=== PATIENT | male | born 1960 | race Caucasian/White ===

== ENCOUNTER 2018-06-12 18:24 | Emergency (ER) | payer MEDICARE, OTHER ==
[2018-06-12] MEDS ORDERED: ONDANSETRON 4 MG/2 ML VIAL IVP STA (19:02)
[2018-06-12] MEDS ORDERED: HYDROmorphone 1 MG/ML CARPUJECT IVP STA ×2 (19:02→20:15)
[2018-06-12 19:03] LABS: BASOPHILS % (AUTO) 0.3 %; EOSINOPHILS % (AUTO) 0.1 %; HGB - HEMOGLOBIN 15.6 g/dL (14.0-18.0); LYMPHOCYTES # (AUTO) 0.7 10^3/uL (1.5-3.5); LYMPHOCYTES % (AUTO) 5.9 %; MEAN CORPUSCULAR HEMOGLOBIN 30.9 pg (27.0-31.0); MEAN CORPUSCULAR HGB CONC 35.2 g/dL (32.0-36.0); MEAN CORPUSCULAR VOLUME 87.6 fL (80.0-94.0); MEAN PLATELET VOLUME 8.8 fL (7.4-11.4); MONOCYTES # (AUTO) 0.2 10^3/uL (0.0-1.0); MONOCYTES % (AUTO) 1.9 %; NEUTROPHILS # (AUTO) 11.2 10^3/uL (1.5-6.6); NEUTROPHILS % (AUTO) 91.8 %; PLT - PLATELET COUNT 137 10^3/uL (130-450); RED BLOOD COUNT 5.04 10^6/uL (4.70-6.10); RED CELL DISTRIBUTION WIDTH 13.5 % (12.0-15.0); WHITE BLOOD COUNT 12.2 x10^3/uL (4.8-10.8)
--- NOTE | 2018-06-12 19:04 | ED Physician Documentation ---
PD HPI ABD PAIN - Stated complaint Stated Complaint: VOMITING/ABD PX - Chief complaint Chief Complaint: Abd Pain - History obtained from History obtained from: Patient, Family () - History of Present Illness Timing - onset: Today (He had inguinal hernia repair 4 weeks ago at the [facility]. He had an acute onset of left-sided abdominal back and urethral pain just a few hours ago with one episode of vomiting.) Review of Systems Ten Systems: 10 systems reviewed and negative Constitutional: denies: Fever, Chills Throat: denies: Dental pain / toothache, Sore throat Cardiac: denies: Chest pain / pressure, Palpitations Respiratory: denies: Dyspnea, Cough PD PAST MEDICAL HISTORY - Past Medical History Cardiovascular: None Respiratory: None Endocrine/Autoimmune: None GI: None : None HEENT: Other Psych: Post traumatic stress disorder Musculoskeletal: Osteoarthritis, Chronic back pain, Other Derm: None - Past Surgical History Ortho: Other HEENT: Other - Present Medications Home Medications: Ambulatory Orders Medication Instructions Recorded Confirmed Ibuprofen [Motrin] 800 mg PO Q8H PRN #30 tablet 06/12/18 Ondansetron Odt [Zofran] 4 mg TL Q6H PRN #10 tablet 06/12/18 Oxycodone HCl/Acetaminophen 1 - 2 each PO Q6H PRN #14 tablet 06/12/18 [Percocet 5-325 mg Tablet] Tamsulosin [Flomax] 0.4 mg PO DAILY #14 capsule 06/12/18 - Allergies Allergies/Adverse Reactions: Allergies Allergy/AdvReac Type Severity Reaction Status Date / Time No Known Drug Allergies Allergy Verified 06/12/18 18:31 PD ED PE NORMAL - Vitals Vital signs reviewed: Yes - General General: Alert and oriented X 3, Other (He is writhing in pain and sweating and appears very uncomfortable) - HEENT HEENT: PERRL, EOMI - Neck Neck: Supple, no meningeal sign, No bony TTP - Cardiac Cardiac: RRR, No murmur - Respiratory Respiratory: No respiratory distress, Clear bilaterally - Abdomen Abdomen: Other (Quite tender in the left side, surgical incisions look fine, no testicular tenderness or inguinal tenderness on the left.) - Back Back: No CVA TTP, No spinal TTP - Derm Derm: Normal color, Warm and dry - Neuro Neuro: Alert and oriented X 3, Normal speech Results - Vitals Vitals: Vital Signs - 24 hr 06/12/18 06/12/18 06/12/18 18:25 19:24 20:00 Temperature 36.4 C L Heart Rate 61 66 70 Respiratory 20 18 17 Rate Blood Pressure 156/89 H 153/98 H 153/84 H O2 Saturation 100 95 98 06/12/18 21:48 Temperature Heart Rate 98 Respiratory 18 Rate Blood Pressure 125/86 H O2 Saturation 95 Oxygen O2 Source Room air - Labs Labs: Laboratory Tests 06/12/18 06/12/18 06/12/18 18:45 18:45 19:25 WBC 12.2 H RBC 5.04 Hgb 15.6 Hct 44.2 MCV 87.6 MCH 30.9 MCHC 35.2 RDW 13.5 Plt Count 137 MPV 8.8 Neut # (Auto) 11.2 H Lymph # (Auto) 0.7 L [place] # (Auto) 0.2 Eos # (Auto) 0.0 Baso # (Auto) 0.0 Absolute Nucleated RBC 0.00 Nucleated RBC % 0.0 Sodium 140 Potassium 3.7 Chloride 104 Carbon Dioxide 24 Anion Gap 12.0 BUN 16 Creatinine 1.4 H Estimated GFR (MDRD) 52 L Glucose 135 H Lactic Acid 5.2 H* Calcium 9.4 Total Bilirubin 1.0 AST 26 ALT 22 Alkaline Phosphatase 39 L Total Protein 7.4 Albumin 4.9 Globulin 2.5 Albumin/Globulin Ratio 2.0 Lipase 27 Urine Color Urine Clarity Urine pH Ur Specific [place] Urine Protein Urine Glucose (UA) Urine Ketones Urine Occult Blood Urine Nitrite Urine Bilirubin Urine Urobilinogen Ur Leukocyte Esterase Ur Microscopic Review Urine Culture Comments 06/12/18 06/12/18 20:18 20:25 WBC RBC Hgb Hct MCV MCH MCHC RDW Plt Count MPV Neut # (Auto) Lymph # (Auto) [place] # (Auto) Eos # (Auto) Baso # (Auto) Absolute Nucleated RBC Nucleated RBC % Sodium Potassium Chloride Carbon Dioxide Anion Gap BUN Creatinine Estimated GFR (MDRD) Glucose Lactic Acid 2.5 H Calcium Total Bilirubin AST ALT Alkaline Phosphatase Total Protein Albumin Globulin Albumin/Globulin Ratio Lipase Urine Color YELLOW Urine Clarity CLEAR Urine pH 6.5 Ur Specific [place] 1.020 Urine Protein NEGATIVE Urine Glucose (UA) NEGATIVE Urine Ketones >=80 H Urine Occult Blood NEGATIVE Urine Nitrite NEGATIVE Urine Bilirubin NEGATIVE Urine Urobilinogen 0.2 (NORMAL) Ur Leukocyte Esterase NEGATIVE Ur Microscopic Review NOT INDICATED Urine Culture Comments NOT INDICATED - Rads (name of study) CT A/P Radiology: EMP read contemporaneously (2 mm left distal ureteral stone with signs of obstruction and moderate fluid in urine in the left perirenal space and proximal periureteral region consistent with forniceal rupture.) PD MEDICAL DECISION MAKING - ED course ED course: 58-year-old gentleman with severe left abdominal pain most consistent on arrival with renal colic but did have significant abdominal tenderness which went away on subsequent examination after narcotic analgesia. CT imaging as shown and because of the forniceal rupture the case was discussed by phone with urology, Dr. Pierce which in [place] who agrees that this can be managed conservatively without urgent transfer. Departure - Departure Disposition: Home, Self Care Clinical Impression: Renal colic Renal rupture Qualifiers: Encounter type: initial encounter Laterality: left Qualified Code(s): S37.062A - Major laceration of left kidney, initial encounter Condition: Good Record reviewed to determine appropriate education?: Yes Instructions: ED Stone Renal W Colic Prescriptions: Ibuprofen [Motrin] 800 mg PO Q8H PRN #30 tablet PRN Reason: PAIN &/OR FEVER Ondansetron Odt [Zofran] 4 mg TL Q6H PRN #10 tablet PRN Reason: Nausea / Vomiting Oxycodone HCl/Acetaminophen [Percocet 5-325 mg Tablet] 1 - 2 each PO Q6H PRN #14 tablet PRN Reason: pain Tamsulosin [Flomax] 0.4 mg PO DAILY #14 capsule Comments: He should follow-up with urologist, gentleman I spoke with grabiel is Dr. Brian in [place], his phone number is [phone], Friday for an appointment. Take the copy of the CAT scan on CD with you for that appointment. Do not drink or drive while taking narcotic pain medication. Note that many narcotic pain relievers also contain Tylenol/acetaminophen. Please ensure that your total dose of acetaminophen from all sources does not exceed 3 g (3000 mg) per day. You may get constipated while on this medication. Take a stool softener such as Colace twice a day while you are on it. Also add an [id number] laxative such as senna or MiraLAX on any day that you do not have a bowel movement. If you received a narcotic pain medication or sedative while in the emergency department, do not drive for the next 24 hours.
[2018-06-12 19:06] LABS: ALBUMIN 4.9 g/dL (3.2-5.5); CALCIUM 9.4 mg/dL (8.5-10.3); CREATININE 1.4 mg/dL (0.6-1.2); TOTAL PROTEIN 7.4 g/dL (6.7-8.2)
[2018-06-12] MEDS ORDERED: SODIUM CHLORIDE 0.9% 1,000 ML IV ONE (20:02)
[2018-06-12] MEDS ORDERED: IOVERSOL 320 100 ML VIAL IVP ONE ×2 (20:23→21:00)
[2018-06-12 20:30] LABS: BILIRUBIN,URINE NEGATIVE (NEGATIVE); GLUCOSE, URINE (UA) NEGATIVE (NEGATIVE); KETONES,URINE (UA) >=80 mg/dL (NEGATIVE); LEUKOCYTE ESTERASE, URINE NEGATIVE (NEGATIVE); NITRITE,URINE NEGATIVE (NEGATIVE); OCCULT BLOOD,URINE NEGATIVE (NEGATIVE); PH,URINE 6.5 PH (5.0-7.5); PROTEIN,URINE NEGATIVE (NEGATIVE); UROBILINOGEN,URINE 0.2 (NORMAL) E.U./dL (NORMAL)
[2018-06-12 20:33] LABS: CLARITY,URINE CLEAR (CLEAR)
[2018-06-12] MEDS ORDERED: KETOROLAC 60 MG/2 ML VIAL IVP STA (21:07)
--- NOTE | 2018-06-12 21:36 | CT Report ---
Reason: IV only, L abd pain Procedure Date: 06/12/2018 Accession Number: [id number] / [id number] Procedure: CT - Abdomen/Pelvis W/ CPT Code: FULL RESULT: EXAM: CT ABDOMEN AND PELVIS EXAM DATE: 06/12/2018 08:49 PM. CLINICAL HISTORY: IV only, L abd pain. COMPARISONS: None. TECHNIQUE: Routine helical CT imaging was performed through the abdomen and pelvis. IV contrast: OPTIRAY 320 100mL. Enteric contrast: No. Reconstructions: Coronal and sagittal. In accordance with CT protocol optimization, one or more of the following dose reduction techniques were utilized for this exam: automated exposure control, adjustment of mA and/or KV based on patient size, or use of iterative reconstructive technique. FINDINGS: Lung Bases: Unremarkable. Liver: Normal. No masses. Gallbladder/Bile Ducts: Unremarkable. Spleen: Normal. Pancreas: Normal size, contour, and enhancement. No pancreatic ductal dilatation. There is edema posterior and inferior to the pancreatic tail which appears to be centered on the posterior pararenal space and fascia. Adrenal Glands: Normal. Kidneys: Right kidney unremarkable. Left kidney with mildly delayed nephrographic enhancement. Minimal left hydronephrosis and proximal hydroureter. Moderate infiltrating density in the left posterior pararenal space and extending in the retroperitoneum inferiorly along the course of the left ureter. There is a 2 mm distal left ureteral calculus at the level of the upper third of the femoral head. No other uroliths are identified on this contrast-enhanced study. Peritoneal Cavity/Bowel: Unopacified stomach and small bowel are nondistended. Appendix is normal. There is minimal formed stool in the colon. There is no pericolonic fat stranding. There is no lymphadenopathy. There is no free fluid or free air. Pelvic Organs: Mild prostatomegaly. Small volume bladder without stones. Seminal vesicles unremarkable. Vasculature: Minimal aortic calcification without abnormal dilation. Otherwise unremarkable. Bones: Degenerative disk disease which is mild at L3-L4, moderate at L5-S1. Other: Tiny fat-containing left inguinal hernia. IMPRESSION: 2 mm distal left ureteral calculus causing obstruction including delayed nephrographic enhancement, minimal hydronephrosis, and moderate fluid/urine in the left pararenal space and proximal periureteral region consistent with forniceal rupture. RADIA
[2018-06-12 21:49] VITALS: BP 125/86
[2018-06-12] MEDS ORDERED: oxyCODONE/ACET 5/325 Prepack 4 PO STA (21:56)
[2018-06-12] MEDS ORDERED: ONDANSETRON ODT 4 MG Prepack 2 TL STA (21:56)
[2018-06-12] MEDS ORDERED: TAMSULOSIN 0.4 MG CAPSULE PO STA (21:56)
== END 2018-06-12 22:54 | disposition home or self-care (01) ==
LOC: ED 18:24
DX: N13.2 Hydronephrosis with renal and ureteral calculous obstruction (principal)
CPT/HCPCS: 36415; 74177; 80053; 81003; 83605; 83690; 85025; 96361; 96374; 96375; 96376; 99283; 99284; A9270; J1170; Q9967; 81001; 87086

== ENCOUNTER 2018-06-14 07:38 | Emergency (ER) | payer MEDICARE, OTHER ==
[2018-06-14] MEDS ORDERED: ONDANSETRON 4 MG/2 ML VIAL IVP STA (08:22)
[2018-06-14] MEDS ORDERED: HYDROmorphone 1 MG/ML CARPUJECT IVP STA ×2 (08:22→10:10)
--- NOTE | 2018-06-14 08:23 | ED Physician Documentation ---
PD HPI ABD PAIN - Stated complaint Stated Complaint: SIDE PX - Chief complaint Chief Complaint: Abd Pain - History obtained from History obtained from: Patient, Family - History of Present Illness Timing - onset: Enter time (0600), Today Timing - duration: Hours Timing - details: Abrupt onset, Still present Quality: Sharp, Pain Location: LUQ Radiation: Left flank Improved by: Laying still Worsened by: Moving, Position, Palpation Associated symptoms: Nausea Similar symptoms before: Diagnosis (ureterolithiasis with forniceal rupture.) Recently seen: Emergency Dept - Additional information Additional information: 58-year-old male seen in the emerge department 2 days ago with a left distal ureteral stone about 2 mm with an associated forniceal rupture. He had a fair collection of fluid in the left flank and he had excellent relief of his pain with the use of some Toradol. Today he has recurrence of his pain that is severe and he is not been able to get control of it. He comes to the emergency department today with increased pain. Review of Systems Constitutional: denies: Fever Eyes: denies: Decreased vision Ears: denies: Ear pain Nose: denies: Congestion Throat: denies: Sore throat Cardiac: denies: Chest pain / pressure Respiratory: denies: Dyspnea, Cough GI: reports: Abdominal Pain, Nausea. denies: Abdominal Swelling : denies: Dysuria, Frequency Skin: denies: Rash Musculoskeletal: reports: Back pain. denies: Neck pain, Extremity pain Neurologic: denies: Generalized weakness, Focal weakness, Numbness PD PAST MEDICAL HISTORY - Past Medical History Cardiovascular: None Respiratory: None Endocrine/Autoimmune: None GI: None : None HEENT: Other Psych: Post traumatic stress disorder Musculoskeletal: Osteoarthritis, Chronic back pain, Other Derm: None - Past Surgical History Ortho: Other HEENT: Other - Present Medications Home Medications: Ambulatory Orders Medication Instructions Recorded Confirmed Ibuprofen [Motrin] 800 mg PO Q8H PRN #30 tablet 06/12/18 Ondansetron Odt [Zofran] 4 mg TL Q6H PRN #10 tablet 06/12/18 Oxycodone HCl/Acetaminophen 1 - 2 each PO Q6H PRN #14 tablet 06/12/18 [Percocet 5-325 mg Tablet] Tamsulosin [Flomax] 0.4 mg PO DAILY #14 capsule 06/12/18 - Allergies Allergies/Adverse Reactions: Allergies Allergy/AdvReac Type Severity Reaction Status Date / Time No Known Drug Allergies Allergy Verified 06/12/18 18:31 PD ED PE NORMAL - Vitals Vital signs reviewed: Yes - General General: Alert and oriented X 3, Well developed/nourished, Other (laying on the right side splinting to keep the left side off of the bed. ) - HEENT HEENT: Atraumatic, PERRL, EOMI - Neck Neck: Supple, no meningeal sign - Cardiac Cardiac: RRR, No murmur - Respiratory Respiratory: No respiratory distress, Clear bilaterally - Abdomen Abdomen: Soft, Other (LUQ tenderness and tenderness to the left flank with some palpable fullness. ) - Back Back: No spinal TTP, Other (left flank tenderness and fullness) - Derm Derm: Normal color, Warm and dry, No rash - Extremities Extremities: No edema - Neuro Neuro: Alert and oriented X 3, rn wellness 2-12 intact, No motor deficit, No sensory deficit, Normal speech Eye Opening: Spontaneous Motor: Obeys Commands Verbal: Oriented GCS Score: 15 - Psych Psych: Normal mood, Normal affect Results - Vitals Vitals: Vital Signs - 24 hr 06/14/18 06/14/18 06/14/18 08:14 08:54 09:48 Temperature 37.0 C Heart Rate 101 H 72 79 Respiratory 18 15 15 Rate Blood Pressure 134/77 H 138/73 H 156/71 H O2 Saturation 99 92 99 06/14/18 06/14/18 06/14/18 10:15 11:35 12:49 Temperature Heart Rate 65 75 86 Respiratory 18 18 16 Rate Blood Pressure 123/74 115/79 124/78 O2 Saturation 98 98 99 Oxygen O2 Source Room air - Labs Labs: Laboratory Tests 06/14/18 06/14/18 06/14/18 08:10 08:10 08:10 WBC 14.4 H RBC 4.83 Hgb 15.1 Hct 42.5 MCV 88.0 MCH 31.3 H MCHC 35.6 RDW 13.1 Plt Count 128 L MPV 8.5 Neut # (Auto) 12.5 H Lymph # (Auto) 0.8 L [place] # (Auto) 1.0 Eos # (Auto) 0.0 Baso # (Auto) 0.0 Absolute Nucleated RBC 0.04 Nucleated RBC % 0.3 Sodium 133 L Potassium 4.3 Chloride 102 Carbon Dioxide 23 Anion Gap 8.0 BUN 21 H Creatinine 2.0 H Estimated GFR (MDRD) 35 L Glucose 133 H Calcium 8.6 Total Bilirubin 1.6 H AST 22 ALT 17 Alkaline Phosphatase 36 L Troponin I < 0.04 Total Protein 7.0 Albumin 4.3 Globulin 2.7 Albumin/Globulin Ratio 1.6 Lipase 34 Urine Color Urine Clarity Urine pH Ur Specific [place] Urine Protein Urine Glucose (UA) Urine Ketones Urine Occult Blood Urine Nitrite Urine Bilirubin Urine Urobilinogen Ur Leukocyte Esterase Ur Microscopic Review Urine Culture Comments 06/14/18 08:53 WBC RBC Hgb Hct MCV MCH MCHC RDW Plt Count MPV Neut # (Auto) Lymph # (Auto) [place] # (Auto) Eos # (Auto) Baso # (Auto) Absolute Nucleated RBC Nucleated RBC % Sodium Potassium Chloride Carbon Dioxide Anion Gap BUN Creatinine Estimated GFR (MDRD) Glucose Calcium Total Bilirubin AST ALT Alkaline Phosphatase Troponin I Total Protein Albumin Globulin Albumin/Globulin Ratio Lipase Urine Color YELLOW Urine Clarity CLEAR Urine pH 5.5 Ur Specific [place] 1.015 Urine Protein NEGATIVE Urine Glucose (UA) NEGATIVE Urine Ketones NEGATIVE Urine Occult Blood NEGATIVE Urine Nitrite NEGATIVE Urine Bilirubin NEGATIVE Urine Urobilinogen 0.2 (NORMAL) Ur Leukocyte Esterase NEGATIVE Ur Microscopic Review NOT INDICATED Urine Culture Comments NOT INDICATED - Rads (name of study) CT ab/pel without Radiology: Prelim report reviewed (Impression: 1. Left urinary tract stone has migrated to the left ureterovesicular junction. 2 There is persistent moderate left hydronephrosis. Perhaps mild interval increase in perinephric and periureteral fluid. There is small to moderate free fluid within the left pelvis which is new since the previous study. Some element of continued urinary extravasation may be present. 3 Remaining solid abdominal organs demonstrate no acute abnormalities.4 No gastrointestinal tract findings. 5 Incidental note of is made of increased maximal diameter of the IVC consistent with jolie vena cava), EMP read indepedently, Other PD MEDICAL DECISION MAKING - ED course Complexity details: reviewed old records, reviewed results, re-evaluated patient, considered differential, d/w patient ED course: 58-year-old male with a distal left ureter stone and a ruptured forniceal has an increase in his pain and presents to the emergency department today with confusion about the amount of fluid he is drinking and the amount of urine he has put out. We are able to get control of his pain today with intravenous Dilaudid and at the time of discharge his pain is resolved. We were able to obtain a second CT urogram this morning and this demonstrates presence of contrast in the distal ureter on the left side and a slight increase in the perinephric fluid and some free fluid into the pelvis. Dr. Pierce which is consulted and the case by telephone and recommends being certain the patient is on his tamsulosin and discontinue the use of anti- inflammatory. He recommends the patient be placed n.p.o. after midnight and follow-up with him in the clinic tomorrow morning. Indicates the patient will likely have reabsorption of most of the urine that is leaking out of the calyces and will have an elevation in his creatinine related to that. He also indicates the hydrodynamic pressure usually present to push a 2mm stone is not present. Departure - Departure Disposition: 01 Home, Self Care Clinical Impression: Renal colic Renal rupture Qualifiers: Encounter type: subsequent encounter Laterality: left Qualified Code(s): S37.062D - Major laceration of left kidney, subsequent encounter Condition: Stable Instructions: ED Stone Renal W Colic Follow-Up: Mariano Brian MD [Physician No Access] - Comments: Be certain to take the tamsulosin and take the oxycodone to stay on top of the pain. Do not eat after midnight and call Dr. Brian tomorrow morning with an update. ([phone]) Discharge Date/Time: 06/14/18 13:03
[2018-06-14 08:35] LABS: BASOPHILS % (AUTO) 0.2 %; EOSINOPHILS % (AUTO) 0.1 %; HGB - HEMOGLOBIN 15.1 g/dL (14.0-18.0); LYMPHOCYTES # (AUTO) 0.8 10^3/uL (1.5-3.5); LYMPHOCYTES % (AUTO) 5.9 %; MEAN CORPUSCULAR HEMOGLOBIN 31.3 pg (27.0-31.0); MEAN CORPUSCULAR HGB CONC 35.6 g/dL (32.0-36.0); MEAN PLATELET VOLUME 8.5 fL (7.4-11.4); NEUTROPHILS # (AUTO) 12.5 10^3/uL (1.5-6.6); NEUTROPHILS % (AUTO) 86.8 %; PLT - PLATELET COUNT 128 10^3/uL (130-450); RED BLOOD COUNT 4.83 10^6/uL (4.70-6.10); RED CELL DISTRIBUTION WIDTH 13.1 % (12.0-15.0); WHITE BLOOD COUNT 14.4 x10^3/uL (4.8-10.8)
[2018-06-14 08:39] LABS: ALBUMIN 4.3 g/dL (3.2-5.5); ALBUMIN/GLOBULIN RATIO 1.6 (1.0-2.2); BILIRUBIN,TOTAL 1.6 mg/dL (0.2-1.0); CALCIUM 8.6 mg/dL (8.5-10.3)
[2018-06-14 09:22] LABS: BILIRUBIN,URINE NEGATIVE (NEGATIVE); GLUCOSE, URINE (UA) NEGATIVE (NEGATIVE); KETONES,URINE (UA) NEGATIVE (NEGATIVE); LEUKOCYTE ESTERASE, URINE NEGATIVE (NEGATIVE); NITRITE,URINE NEGATIVE (NEGATIVE); OCCULT BLOOD,URINE NEGATIVE (NEGATIVE); PH,URINE 5.5 PH (5.0-7.5); PROTEIN,URINE NEGATIVE (NEGATIVE); UROBILINOGEN,URINE 0.2 (NORMAL) E.U./dL (NORMAL)
[2018-06-14 09:23] LABS: CLARITY,URINE CLEAR (CLEAR)
--- NOTE | 2018-06-14 10:11 | CT Report ---
Reason: left foriceal rupture decreased urine output Procedure Date: 06/14/2018 Accession Number: [id number] / [id number] Procedure: CT - Abdomen/Pelvis W/O CPT Code: FULL RESULT: EXAM: CT ABDOMEN AND PELVIS (CT KUB) EXAM DATE: 06/14/2018 09:14 AM. CLINICAL HISTORY: Left forniceal rupture decreased urine output. COMPARISONS: ABDOMEN/PELVIS W/ 06/12/2018 8:49 PM. TECHNIQUE: Routine axial helical CT imaging was performed through the abdomen and pelvis without IV contrast. Reconstructions: Coronal and sagittal. In accordance with CT protocol optimization, one or more of the following dose reduction techniques were utilized for this exam: automated exposure control, adjustment of mA and/or KV based on patient size, or use of iterative reconstructive technique. FINDINGS: Lung Bases: Unremarkable. Right Kidney/Ureter: No stones, hydronephrosis, or hydroureter. No perinephric fat stranding. Left Kidney/Ureter: The 0.2 cm stone has moved from the low left ureter to the left ureterovesicular junction. There is some mild residual contrast material within the mid and upper left ureter. There is moderate left hydronephrosis. There has been mild interval increase in perinephric and periureteral fluid. There is fluid within the posterior left pelvis. Other Solid Organs: Noncontrast images of the solid organs are grossly unremarkable. Gallbladder/Bile Ducts: There is layering hyperdensity within the gallbladder which is probably sludge or vicarious excretion of contrast material. Peritoneal Cavity: No dilated or thick-walled bowel is seen. As above, there is free fluid within the pelvis. There is no intraperitoneal free air. Pelvic Organs: Left UVJ stone as above. Prostate and seminal vesicles are unremarkable. Vasculature: The IVC measures up to 3.0 cm in diameter. No clearly acute vascular abnormalities are seen. Other: None. IMPRESSION: 1. Left urinary tract stone has migrated to the left ureterovesicular junction. 2. There is persistent moderate left hydronephrosis. Perhaps mild interval increase in perinephric and periureteral fluid. There is small to moderate free fluid within the left pelvis which is new since the previous study. Some element of continued urinary extravasation may be present. 3. Remaining solid abdominal organs demonstrate no acute abnormalities. 4. No acute gastrointestinal tract findings. 5. Incidental note is made of increased maximal diameter of the IVC, consistent with jolie vena cava. RADIA
[2018-06-14 12:50] VITALS: BP 124/78
== END 2018-06-14 13:03 | disposition home or self-care (01) ==
LOC: ED 07:38
DX: N13.2 Hydronephrosis with renal and ureteral calculous obstruction (principal); S37.062D Major laceration of left kidney, subsequent encounter; X58.XXXD Exposure to other specified factors, subsequent encounter
CPT/HCPCS: 36415; 74176; 80053; 81003; 83690; 84484; 85025; 96374; 96376; 99283; 99284; J1170; 81001; 87086

== ENCOUNTER 2018-06-18 18:15 | Emergency (ER) | payer MEDICARE, OTHER ==
[2018-06-18 18:44] LABS: BASOPHILS % (AUTO) 0.7 %; EOSINOPHILS # (AUTO) 0.2 10^3/uL (0.0-0.7); EOSINOPHILS % (AUTO) 2.5 %; HGB - HEMOGLOBIN 14.7 g/dL (14.0-18.0); LYMPHOCYTES # (AUTO) 1.2 10^3/uL (1.5-3.5); MEAN CORPUSCULAR HEMOGLOBIN 30.7 pg (27.0-31.0); MEAN CORPUSCULAR HGB CONC 34.7 g/dL (32.0-36.0); MEAN CORPUSCULAR VOLUME 88.5 fL (80.0-94.0); MEAN PLATELET VOLUME 7.7 fL (7.4-11.4); MONOCYTES # (AUTO) 0.6 10^3/uL (0.0-1.0); MONOCYTES % (AUTO) 9.4 %; NEUTROPHILS # (AUTO) 4.6 10^3/uL (1.5-6.6); NEUTROPHILS % (AUTO) 69.4 %; PLT - PLATELET COUNT 160 10^3/uL (130-450); RED BLOOD COUNT 4.78 10^6/uL (4.70-6.10); RED CELL DISTRIBUTION WIDTH 12.9 % (12.0-15.0); WHITE BLOOD COUNT 6.6 x10^3/uL (4.8-10.8)
[2018-06-18 18:53] LABS: ALBUMIN 3.8 g/dL (3.2-5.5); ALBUMIN/GLOBULIN RATIO 1.1 (1.0-2.2); BILIRUBIN,TOTAL 0.6 mg/dL (0.2-1.0); CALCIUM 8.2 mg/dL (8.5-10.3); CREATININE 1.1 mg/dL (0.6-1.2); TOTAL PROTEIN 7.2 g/dL (6.7-8.2)
[2018-06-18] MEDS ORDERED: KETOROLAC 30 MG/ML VIAL IVP STA (18:58)
[2018-06-18] MEDS ORDERED: SODIUM CHLORIDE 0.9% 1,000 ML IV ONE (18:58)
[2018-06-18] MEDS ORDERED: HYDROmorphone 1 MG/ML CARPUJECT IVP STA (18:58)
[2018-06-18] MEDS ORDERED: DEXAMETHASONE 10 MG/ML VIAL IVP STA (18:59)
--- NOTE | 2018-06-18 19:00 | ED Physician Documentation ---
PD HPI ABD PAIN - Stated complaint Stated Complaint: L BACK PX - Chief complaint Chief Complaint: Abd Pain - History obtained from History obtained from: Patient - History of Present Illness Timing - onset: Other (Recently diagnosed with a small stone on the left that causes renal rupture. He was seen here again for pain management and then passed the stone but is now having problems with what was diagnosed by the urologist is ureteral spasm since they have caught the stone and he was pain- free for a couple of days but the pain recurred yesterday. In the same spot, left flank radiating to the left testicle.) Review of Systems Constitutional: denies: Fever, Chills Cardiac: denies: Chest pain / pressure Respiratory: denies: Dyspnea, Cough GI: reports: Abdominal Pain, Nausea, Constipation. denies: Vomiting, Diarrhea PD PAST MEDICAL HISTORY - Past Medical History Past Medical History: Yes Cardiovascular: None Respiratory: None Endocrine/Autoimmune: None GI: None : None, Kidney stones HEENT: Other Psych: Post traumatic stress disorder Musculoskeletal: Osteoarthritis, Chronic back pain, Other Derm: None - Past Surgical History Past Surgical History: Yes Ortho: Other HEENT: Other - Present Medications Home Medications: Ambulatory Orders Medication Instructions Recorded Confirmed Ibuprofen [Motrin] 800 mg PO Q8H PRN #30 tablet 06/12/18 Ondansetron Odt [Zofran] 4 mg TL Q6H PRN #10 tablet 06/12/18 Oxycodone HCl/Acetaminophen 1 - 2 each PO Q6H PRN #14 tablet 06/12/18 [Percocet 5-325 mg Tablet] Tamsulosin [Flomax] 0.4 mg PO DAILY #14 capsule 06/12/18 RX: predniSONE [Deltasone] 60 mg PO DAILY 5 Days tablet 06/18/18 - Allergies Allergies/Adverse Reactions: Allergies Allergy/AdvReac Type Severity Reaction Status Date / Time No Known Drug Allergies Allergy Verified 06/18/18 18:22 - Social History Does the pt smoke?: No Smoking Status: Never smoker Does the pt drink ETOH?: No Does the pt have substance abuse?: No - Immunizations Immunizations are current?: No Immunizations: TDAP >10years/unknown - POLST Patient has POLST: No PD ED PE NORMAL - Vitals Vital signs reviewed: Yes - General General: Alert and oriented X 3, Other (Uncomfortable and in pain) - Abdomen Abdomen: Soft, Non tender - Derm Derm: Other (There is a little papular rash across the upper chest and upper arms, most consistent with some sort of drug rash.) - Neuro Neuro: Alert and oriented X 3, Normal speech Results - Vitals Vitals: Vital Signs - 24 hr 06/18/18 06/18/18 18:20 20:32 Temperature 36.6 C Heart Rate 64 72 Respiratory 20 16 Rate Blood Pressure 161/97 H 131/89 H O2 Saturation 99 95 Oxygen O2 Source Room air - Labs Labs: Laboratory Tests 06/18/18 06/18/18 18:36 18:36 WBC 6.6 RBC 4.78 Hgb 14.7 Hct 42.3 MCV 88.5 MCH 30.7 MCHC 34.7 RDW 12.9 Plt Count 160 MPV 7.7 Neut # (Auto) 4.6 Lymph # (Auto) 1.2 L [place] # (Auto) 0.6 Eos # (Auto) 0.2 Baso # (Auto) 0.0 Absolute Nucleated RBC 0.01 Nucleated RBC % 0.1 Sodium 139 Potassium 4.0 Chloride 103 Carbon Dioxide 27 Anion Gap 9.0 BUN 16 Creatinine 1.1 Estimated GFR (MDRD) 69 L Glucose 101 H Calcium 8.2 L Total Bilirubin 0.6 AST 22 ALT 17 Alkaline Phosphatase 37 L Total Protein 7.2 Albumin 3.8 Globulin 3.4 Albumin/Globulin Ratio 1.1 Lipase 27 PD MEDICAL DECISION MAKING - ED course ED course: 58-year-old gentleman with recurrent pain from a small left ureteral stone with improved renal rupture. His pain was easily controlled tonight with a single round of pain medications. He was started on steroids for what looks like a drug rash across the upper extremities, this may help with recurrent ureteral spasm but my understanding is that the data for that is less compelling. Departure - Departure Disposition: 01 Home, Self Care Clinical Impression: Renal colic, Renal rupture Condition: Good Record reviewed to determine appropriate education?: Yes Instructions: ED Stone Renal W Colic Prescriptions: RX: predniSONE [Deltasone] 60 mg PO DAILY 5 Days tablet Discharge Date/Time: 06/18/18 20:41
[2018-06-18] MEDS ORDERED: diphenhydrAMINE INJ 50 MG/ML VIAL IVP STA (19:17)
[2018-06-18] MEDS ORDERED: diphenhydrAMINE INJ 50 MG/ML VIAL ONE (19:20)
[2018-06-18 20:32] VITALS: BP 131/89
== END 2018-06-18 20:41 | disposition home or self-care (01) ==
LOC: ED 18:15
DX: N23 Unspecified renal colic (principal); N28.89 Other specified disorders of kidney and ureter; R21 Rash and other nonspecific skin eruption; Z87.442 Personal history of urinary calculi
CPT/HCPCS: 36415; 80053; 83690; 85025; 96374; 96375; 99283

== ENCOUNTER 2020-05-12 16:55 | Outpatient (CLI) | payer MEDICARE, OTHER ==
--- NOTE | 2020-05-12 16:57 | XRAY Report ---
PROCEDURE: Finger(s) LT INDICATIONS: LOCALIZED SWELLING, MASS/LUMP LEFT UPPER LIMB TECHNIQUE: AP hand, 3 views of the second finger(s) acquired. COMPARISON: None FINDINGS: Bones: No fractures or dislocations. No suspicious bony lesions. Minimal to mild scattered areas of IP degenerative narrowing. No erosions. Soft tissues: No suspicious soft tissue calcifications. IMPRESSION: Mild to moderate scattered IP narrowing suggestive of arthritis. Reviewed by: Shira High MD on 05/12/2020 4:56 PM [facility] Approved by: Shira High MD on 05/12/2020 4:56 PM [facility] Station ID: [id number]
== END 2020-05-12 23:59 | disposition home or self-care (01) ==
LOC: DI.N 16:55
PROVIDERS: ATTEND Physician Assistant
DX: R22.32 Localized swelling, mass and lump, left upper limb (principal)

== ENCOUNTER 2023-08-13 21:37 | Emergency (ER) | payer MEDICARE, OTHER ==
[2023-08-13 22:08] LABS: BASOPHILS # (AUTO) 0.1 10^3/uL (0.0-0.1); BASOPHILS % (AUTO) 0.8 %; EOSINOPHILS # (AUTO) 0.1 10^3/uL (0.0-0.7); EOSINOPHILS % (AUTO) 1.9 %; HCT - HEMATOCRIT 46.6 % (42.0-52.0); HGB - HEMOGLOBIN 15.7 g/dL (14.0-18.0); LYMPHOCYTES # (AUTO) 1.3 10^3/uL (1.5-3.5); LYMPHOCYTES % (AUTO) 21.1 %; MEAN CORPUSCULAR HEMOGLOBIN 30.6 pg (27.0-31.0); MEAN CORPUSCULAR HGB CONC 33.7 g/dL (32.0-36.0); MEAN CORPUSCULAR VOLUME 90.8 fL (80.0-94.0); MEAN PLATELET VOLUME 10.3 fL (7.4-11.4); MONOCYTES # (AUTO) 0.6 10^3/uL (0.0-1.0); MONOCYTES % (AUTO) 9.9 %; NEUTROPHILS # (AUTO) 4.2 10^3/uL (1.5-6.6); NEUTROPHILS % (AUTO) 66.1 %; PLT - PLATELET COUNT 146 10^3/uL (130-450); RED BLOOD COUNT 5.13 10^6/uL (4.70-6.10); RED CELL DISTRIBUTION WIDTH 12.2 % (12.0-15.0); WHITE BLOOD COUNT 6.4 x10^3/uL (4.8-10.8)
[2023-08-13 22:25] LABS: ALBUMIN 4.6 g/dL (3.2-5.5); ALBUMIN/GLOBULIN RATIO 2.3 (1.0-2.2); BILIRUBIN,TOTAL 0.6 mg/dL (0.2-1.0); CALCIUM 9.7 mg/dL (8.5-10.3); CREATININE 1.2 mg/dL (0.6-1.3); TOTAL PROTEIN 6.6 g/dL (6.4-8.9)
[2023-08-13] MEDS: KETOROLAC 30 MG/ML VIAL IVP STA (22:34)
[2023-08-13] MEDS: HYDROmorphone 1 MG/ML CARPUJECT IVP STA (22:34)
[2023-08-14 00:03] LABS: BILIRUBIN,URINE NEGATIVE (NEGATIVE); GLUCOSE, URINE (UA) NEGATIVE (NEGATIVE); KETONES,URINE (UA) NEGATIVE (NEGATIVE); LEUKOCYTE ESTERASE, URINE NEGATIVE (NEGATIVE); NITRITE,URINE NEGATIVE (NEGATIVE); OCCULT BLOOD,URINE LARGE (NEGATIVE); PROTEIN,URINE NEGATIVE (NEGATIVE); UROBILINOGEN,URINE 0.2 (NORMAL) E.U./dL (NORMAL)
[2023-08-14 00:04] LABS: CLARITY,URINE SL. CLOUDY (CLEAR)
[2023-08-14 00:12] LABS: BACTERIA,URINE Rare /HPF (None Seen); RBC,URINE TNTC /HPF (0-5); SQUAMOUS EPITHELIAL CELL,UR NONE SEEN (<= Few); WBC,URINE 0-3 /HPF (0-3)
[2023-08-14] MEDS: HYDROmorphone 1 MG/ML CARPUJECT IVP STA ×2 (00:38→02:57)
--- NOTE | 2023-08-14 01:54 | CT Report ---
PROCEDURE: Abdomen/Pelvis WO INDICATIONS: R flank/groin pain, h/o kidney stone TECHNIQUE: A CT scan of the abdomen and pelvis was performed without the use of intravenous contrast. Images we re recorded and evaluated at appropriate window settings. Reformats: coronal and sagittal. For radiat ion dose reduction, the following was used: automated exposure control, adjustment of mA and/or kV ac cording to patient size. COMPARISON: CT abdomen and pelvis 06/04/2018. FINDINGS: Image quality: Diagnostic. Lower chest: Unremarkable. Liver: No contour-deforming mass. Gallbladder and biliary tree: No radiopaque stones or wall thickening. No biliary dilation. Spleen: No splenomegaly. Pancreas: No pancreatic ductal dilation. Adrenals: No adrenal nodule. Kidneys and ureters: Right mid ureter 4 mm obstructing stone with mild upstream hydronephrosis. No re nal cystic lesion which requires follow up. No solid mass. Stomach, bowel and peritoneum: No bowel distension. No pathologic free fluid. Normal caliber appendix right lower quadrant. Lymph nodes: No central or retroperitoneal adenopathy. Vessels: No infrarenal aortic aneurysm. PELVIS Reproductive organs: Unremarkable. Bladder: No wall thickness, accounting for underdistention. Pelvic lymph nodes: No pelvic adenopathy by size criteria. Bones: No aggressive osseous abnormality. Other: No significant ventral or inguinal hernia. IMPRESSION: Obstructing right mid ureter 4 mm stone with mild hydronephrosis. Reviewed by: Maria M Cohen MD on 08/14/2023 1:53 AM PST Approved by: Maria M Cohen MD on 08/14/2023 1:53 AM PST Station ID: [id number]
[2023-08-14 02:06] VITALS: O2SAT 93
--- NOTE | 2023-08-14 02:35 | ED Physician Documentation ---
History of Present Illness - Stated complaint Stated Complaint: LOWER RT BACK PX - Chief complaint Chief Complaint: Back Pain - History obtained from History obtained from: Patient, Family - Additonal information Additional information: The pt comes to the ED with for CC of sudden onset R low back and groin pain a couple of hours ago. He states it feels like when he has had a kidney stone previously. Nausea and vomiting concurrent with the waves of pain. No fever or chills. No dysuria. No other abdominal history. He is otherwise fairly healthy. PD PAST MEDICAL HISTORY - Past Medical History Past Medical History: Yes Cardiovascular: None Respiratory: None Neuro: None Endocrine/Autoimmune: None GI: None : Kidney stones HEENT: Other Psych: Post traumatic stress disorder Musculoskeletal: Osteoarthritis, Chronic back pain, Other Derm: None - Past Surgical History Past Surgical History: Yes Ortho: Other HEENT: Other - Present Medications Home Medications: Ambulatory Orders Medication Instructions Recorded Confirmed Ibuprofen [Motrin] 800 mg PO Q8H PRN #30 tablet 06/12/18 Ondansetron Odt [Zofran] 4 mg TL Q6H PRN #10 tablet 06/12/18 Oxycodone HCl/Acetaminophen 1 - 2 each PO Q6H PRN #14 tablet 06/12/18 [Percocet 5-325 mg Tablet] Tamsulosin [Flomax] 0.4 mg PO DAILY #14 capsule 06/12/18 predniSONE [Deltasone] 60 mg PO DAILY 5 Days tablet 06/18/18 Ondansetron Odt [Zofran] 4 mg TL Q6H PRN #14 tablet 08/14/23 Oxycodone HCl/Acetaminophen 1 - 2 tab PO Q4H PRN #20 tab 08/14/23 [Oxycodone-Acetaminophen 5-325] Oxycodone HCl/Acetaminophen 1 each PO Q6H PRN #14 tablet 08/14/23 [Percocet 5-325 mg Tablet] Tamsulosin [Flomax] 0.4 mg PO DAILY #7 cap 08/14/23 oxyCODONE [Roxicodone] 1 - 2 tab PO Q4-6H PRN #25 tablet 08/15/23 polyethylene glycoL 3350(BULK) 17 gm PO DAILY PRN #1 each 08/15/23 [Miralax] - Allergies Allergies/Adverse Reactions: Allergies Allergy/AdvReac Type Severity Reaction Status Date / Time No Known Drug Allergies Allergy Verified 08/16/23 11:40 - Social History Does the pt smoke?: No Smoking Status: Never smoker Does the pt drink ETOH?: No Does the pt have substance abuse?: No - Immunizations Immunizations are current?: No Immunizations: TDAP >10years/unknown - POLST Patient has POLST: No PD ED PE NORMAL - Vitals Vital signs reviewed: Yes - General General: Alert and oriented X 3, Well developed/nourished, Other (Hyperventilating, very anxious and uncomfortable-appearing man) - HEENT HEENT: Atraumatic, PERRL, EOMI, Moist mucous membranes - Neck Neck: Supple, no meningeal sign - Cardiac Cardiac: RRR, No murmur - Respiratory Respiratory: No respiratory distress, Clear bilaterally - Abdomen Abdomen: Soft, Non tender, Non distended - Derm Derm: Normal color, Warm and dry, No rash - Extremities Extremities: No deformity, No edema - Neuro Neuro: Alert and oriented X 3 - Psych Psych: Normal mood, Normal affect Results - Vitals Vitals: Oxygen O2 Source Room air - Labs Labs: Laboratory Tests 08/13/23 08/13/23 08/13/23 22:00 22:02 22:02 WBC 6.4 RBC 5.13 Hgb 15.7 Hct 46.6 MCV 90.8 MCH 30.6 MCHC 33.7 RDW 12.2 Plt Count 146 MPV 10.3 Neut # (Auto) 4.2 Lymph # (Auto) 1.3 L [place] # (Auto) 0.6 Eos # (Auto) 0.1 Baso # (Auto) 0.1 Absolute Nucleated RBC 0.00 Nucleated RBC % 0.0 Sodium 139 Potassium 4.0 Chloride 104 Carbon Dioxide 29 Anion Gap 6.0 BUN 19 Creatinine 1.2 Estimated GFR (MDRD) 62 L Glucose 108 H Calcium 9.7 Total Bilirubin 0.6 AST 16 ALT 11 Alkaline Phosphatase 41 L Total Protein 6.6 Albumin 4.6 Globulin 2.0 L Albumin/Globulin Ratio 2.3 H Lipase 51 Urine Color YELLOW Urine Clarity SL. CLOUDY Urine pH 6.0 Ur Specific [place] 1.025 Urine Protein NEGATIVE Urine Glucose (UA) NEGATIVE Urine Ketones NEGATIVE Urine Occult Blood LARGE H Urine Nitrite NEGATIVE Urine Bilirubin NEGATIVE Urine Urobilinogen 0.2 (NORMAL) Ur Leukocyte Esterase NEGATIVE Urine RBC TNTC H Urine WBC 0-3 Ur Squamous Epith Cells NONE SEEN Urine Bacteria Rare Ur Microscopic Review INDICATED Urine Culture Comments NOT INDICATED - Rads (name of study) CT abd/pelvis Relevant Findings:: Final report received, See rad report (4mm mid-ureteral stone, mild hydronephrosis.) PD Medical Decision Making - ED course Complexity details: reviewed results, re-evaluated patient, considered differential, d/w patient, d/w family ED course: The pt was treated with IV fluids, analgesics, and antiemetics, with improvement in sx. Labs were unremarkable. UA showed no UTI, but large blood. CT showed a 4mm R ureteral stone. I discussed the findings with pt and . I have given him a prepack of pain and nausea meds, and a prescription for the same. We have discussed aggressive hydration, symptomatic management, urology follow- up, and the usual indications for return. Departure - Departure Disposition: 01 Home, Self Care Clinical Impression: Kidney stone on right side Condition: Stable Instructions: ED Stone Renal W Colic Prescriptions: Tamsulosin [Flomax] 0.4 mg PO DAILY #7 cap Oxycodone HCl/Acetaminophen [Oxycodone-Acetaminophen 5-325] 1 - 2 tab PO Q4H PRN #20 tab PRN Reason: Pain 5-7 Oxycodone HCl/Acetaminophen [Percocet 5-325 mg Tablet] 1 each PO Q6H PRN #14 tablet PRN Reason: pain Ondansetron Odt [Zofran] 4 mg TL Q6H PRN #14 tablet PRN Reason: Nausea / Vomiting Comments: Your CT scan showed a 4 mm stone that is in the process of passing on the right side. Your kidney otherwise looks fairly good. It is important that you drink plenty of fluids to help the stone to pass. Prescriptions for medications to help with your pain and nausea will be electronically transmitted to the pharmacy of your choice. Please call the urology office to schedule follow-up appointment for within the next few weeks. Please also follow-up with your primary doctor. Discharge Date/Time: 08/14/23 03:31
[2023-08-14] MEDS: KETOROLAC 30 MG/ML VIAL IVP STA (02:57)
[2023-08-14] MEDS: HYDROcod/ACET 5/325 Prepack 4 PO STA (03:00)
[2023-08-14] MEDS: ONDANSETRON ODT 4 MG Prepack 2 TL PRN (03:00)
[2023-08-14 03:31] VITALS: BP 174/108
== END 2023-08-14 03:31 | disposition home or self-care (01) ==
LOC: ED 21:37
DX: N13.2 Hydronephrosis with renal and ureteral calculous obstruction (principal); Z87.442 Personal history of urinary calculi; M19.90 Unspecified osteoarthritis, unspecified site; Z79.899 Other long term (current) drug therapy
CPT/HCPCS: 36415; 74176; 80053; 81001; 83690; 85025; 96374; 96376; 99283; 99284; J1170; 81003; 87086

== ENCOUNTER 2023-08-15 16:37 | Emergency (ER) | payer MEDICARE, OTHER ==
--- NOTE | 2023-08-15 16:49 | ED Physician Documentation ---
PD HPI ABD PAIN - Stated complaint Stated Complaint: LOWER BACK PX - Chief complaint Chief Complaint: Abd Pain - History obtained from History obtained from: Patient, Family - Additional information Additional information: He has a history of renal colic and was seen by my partner a couple of nights ago, he has a known 4 mm right mid ureteral stone. Pain is terrible today, a level 10 despite taking oxycodone prior to arrival. Pain is in the right flank and radiates towards the right groin. PD PAST MEDICAL HISTORY - Past Medical History Past Medical History: Yes Cardiovascular: None Respiratory: None Neuro: None Endocrine/Autoimmune: None GI: None : Kidney stones HEENT: Other Psych: Post traumatic stress disorder Musculoskeletal: Osteoarthritis, Chronic back pain, Other Derm: None - Past Surgical History Past Surgical History: Yes Ortho: Other HEENT: Other - Present Medications Home Medications: Ambulatory Orders Medication Instructions Recorded Confirmed Ibuprofen [Motrin] 800 mg PO Q8H PRN #30 tablet 06/12/18 Ondansetron Odt [Zofran] 4 mg TL Q6H PRN #10 tablet 06/12/18 Oxycodone HCl/Acetaminophen 1 - 2 each PO Q6H PRN #14 tablet 06/12/18 [Percocet 5-325 mg Tablet] Tamsulosin [Flomax] 0.4 mg PO DAILY #14 capsule 06/12/18 predniSONE [Deltasone] 60 mg PO DAILY 5 Days tablet 06/18/18 Ondansetron Odt [Zofran] 4 mg TL Q6H PRN #14 tablet 08/14/23 Oxycodone HCl/Acetaminophen 1 - 2 tab PO Q4H PRN #20 tab 08/14/23 [Oxycodone-Acetaminophen 5-325] Oxycodone HCl/Acetaminophen 1 each PO Q6H PRN #14 tablet 08/14/23 [Percocet 5-325 mg Tablet] Tamsulosin [Flomax] 0.4 mg PO DAILY #7 cap 08/14/23 Oxycodone HCl/Acetaminophen 1 - 2 each PO Q4HR PRN #20 tablet 08/15/23 [Percocet 5-325 mg Tablet] polyethylene glycoL 3350(BULK) 17 gm PO DAILY PRN #1 each 08/15/23 [Miralax] - Allergies Allergies/Adverse Reactions: Allergies Allergy/AdvReac Type Severity Reaction Status Date / Time No Known Drug Allergies Allergy Verified 08/15/23 17:13 - Social History Does the pt smoke?: No Smoking Status: Never smoker Does the pt drink ETOH?: No Does the pt have substance abuse?: No - Immunizations Immunizations are current?: No Immunizations: TDAP >10years/unknown - POLST Patient has POLST: No PD ED PE NORMAL - Vitals Vital signs reviewed: Yes - General General: Alert and oriented X 3, Other (He appears uncomfortable, pacing and clearly in pain.) - Abdomen Abdomen: Normal bowel sounds, Soft, Non tender - Back Back: No CVA TTP - Neuro Neuro: Alert and oriented X 3 Results - Vitals Vitals: Vital Signs - 24 hr 08/15/23 08/15/23 16:40 17:30 Temperature 36.8 C Heart Rate 60 61 Respiratory 16 16 Rate Blood Pressure 152/89 H 150/91 H O2 Saturation 99 94 Oxygen O2 Source Room air - Labs Labs: Laboratory Tests 08/15/23 08/15/23 18:00 18:40 Sodium 137 Potassium 4.1 Chloride 106 Carbon Dioxide 24 Anion Gap 7.0 BUN 14 Creatinine 1.2 Estimated GFR (MDRD) 62 L Glucose 108 H Calcium 8.2 L Urine Color YELLOW Urine Clarity HAZY Urine pH 5.5 Ur Specific [place] 1.015 Urine Protein NEGATIVE Urine Glucose (UA) NEGATIVE Urine Ketones NEGATIVE Urine Occult Blood LARGE H Urine Nitrite NEGATIVE Urine Bilirubin NEGATIVE Urine Urobilinogen 0.2 (NORMAL) Ur Leukocyte Esterase NEGATIVE Urine RBC TNTC H Urine WBC 0-3 Ur Squamous Epith Cells RARE Squamous Urine Bacteria None Seen Ur Microscopic Review INDICATED Urine Culture Comments NOT INDICATED PD Medical Decision Making - ED course ED course: 63-year-old gentleman presents with known severe pain related to a 4 mm right ureteral stone. He was treated stepwise here with Dilaudid, Toradol, and repeat doses of Dilaudid with excellent relief of his pain and was agreeable to discharge. BMP and urinalysis were without unexpected findings i.e. renal failure or infection. Departure - Departure Disposition: 01 Home, Self Care Clinical Impression: Renal colic on right side Condition: Good Record reviewed to determine appropriate education?: Yes Instructions: ED Stone Renal W Colic Follow-Up: Adonay العراقي MD [Provider Admit Priv/Credential] - Prescriptions: Oxycodone HCl/Acetaminophen [Percocet 5-325 mg Tablet] 1 - 2 each PO Q4HR PRN #20 tablet PRN Reason: pain from kidney stone polyethylene glycoL 3350(BULK) [Miralax] 17 gm PO DAILY PRN #1 each PRN Reason: Constipation Comments: I sent your prescription electronically Kristin in [place]. Reasonable to call make an appointment with the urologist, especially if not improving over the weekend. Return for new or worsening symptoms. In addition to the prescribed medications you can take ibuprofen, 800 mg every 6 hours. You can increase your oxycodone to 2 tablets every 4-6 hours, keep taking the Flomax, and I am also prescribing a laxative. I am prescribing a short course of narcotic pain medication for you. These are potentially dangerous and addictive medications that should be used carefully. These medications may constipate you. Take an [id number] stool softener (docusate) twice daily with plenty of water while taking these medications. If you go 24 hours without a bowel movement, take [id number] miralax, per package instructions. Do not drink or drive while taking these medications. If you received narcotic or sedating medications while in the emergency department, do not drive for 24 hours. Store this medication in a safe, secure place and out of reach of children. It is a violation of federal law to give or sell this medication to another person or to use in a manner other than prescribed. The ED will not refill narcotic prescriptions, including prescriptions lost or stolen. To dispose of unwanted medications: 1. [facility] provides a [facility] box for medication in pill form only (no liquids) 8:00 am to 4:30 p.m. Friday-Friday in the lobby of the [facility], [address] [place] [address]. Empty pills into ziplock bag before disposal. Call [phone] for information. 2.[employer] is a free service available to all [facility] residents. Go to [email or web address] Note that many narcotic pain relievers also contain Tylenol/acetaminophen. Please ensure that your total dose of acetaminophen from all sources does not exceed 3 g (3000 mg) per day. Forms: PCP List
[2023-08-15] MEDS: KETOROLAC 15 MG/ML VIAL IVP STA (16:54)
[2023-08-15] MEDS: HYDROmorphone 1 MG/ML CARPUJECT IVP STA ×3 (16:55→19:32)
[2023-08-15] MEDS: ONDANSETRON 4 MG/2 ML VIAL IVP STA (16:55)
[2023-08-15] MEDS: SODIUM CHLORIDE 0.9% 1,000 ML IV STA (17:08)
[2023-08-15 18:19] LABS: BILIRUBIN,URINE NEGATIVE (NEGATIVE); GLUCOSE, URINE (UA) NEGATIVE (NEGATIVE); KETONES,URINE (UA) NEGATIVE (NEGATIVE); LEUKOCYTE ESTERASE, URINE NEGATIVE (NEGATIVE); NITRITE,URINE NEGATIVE (NEGATIVE); OCCULT BLOOD,URINE LARGE (NEGATIVE); PH,URINE 5.5 PH (5.0-7.5); PROTEIN,URINE NEGATIVE (NEGATIVE); UROBILINOGEN,URINE 0.2 (NORMAL) E.U./dL (NORMAL)
[2023-08-15 18:22] LABS: CLARITY,URINE HAZY (CLEAR)
[2023-08-15 18:31] LABS: BACTERIA,URINE None Seen /HPF (None Seen); RBC,URINE TNTC /HPF (0-5); SQUAMOUS EPITHELIAL CELL,UR RARE Squamous (<= Few); WBC,URINE 0-3 /HPF (0-3)
[2023-08-15 19:13] LABS: CALCIUM 8.2 mg/dL (8.5-10.3); CREATININE 1.2 mg/dL (0.6-1.3); POTASSIUM 4.1 mmol/L (3.5-4.5)
[2023-08-15 19:36] VITALS: BP 149/90; O2SAT 95
== END 2023-08-15 19:57 | disposition home or self-care (01) ==
LOC: ED 16:37
DX: N23 Unspecified renal colic (principal); Z87.442 Personal history of urinary calculi; Z79.899 Other long term (current) drug therapy
CPT/HCPCS: 36415; 80048; 81001; 96374; 96375; 96376; 99283; J1170; 81003; 87086

== ENCOUNTER 2023-08-16 11:32 | Emergency (ER) | payer MEDICARE, OTHER ==
--- NOTE | 2023-08-16 11:48 | ED Physician Documentation ---
PD HPI ABD PAIN - Stated complaint Stated Complaint: VOMIT, - Chief complaint Chief Complaint: Abd Pain - History obtained from History obtained from: Patient - Additional information Additional information: He has a history of renal colic and was originally diagnosed with his current 4 mm right mid ureteral stone on the . Bounced back yesterday for pain. Today he could not keep his pain medications down because of vomiting. Pain is not as severe as yesterday, 7 right now and is radiating more towards the groin. PD PAST MEDICAL HISTORY - Past Medical History Past Medical History: Yes Cardiovascular: None Respiratory: None Neuro: None Endocrine/Autoimmune: None GI: None : Kidney stones HEENT: Other Psych: Post traumatic stress disorder Musculoskeletal: Osteoarthritis, Chronic back pain, Other Derm: None - Past Surgical History Past Surgical History: Yes Ortho: Other HEENT: Other - Present Medications Home Medications: Ambulatory Orders Medication Instructions Recorded Confirmed Ibuprofen [Motrin] 800 mg PO Q8H PRN #30 tablet 06/12/18 Ondansetron Odt [Zofran] 4 mg TL Q6H PRN #10 tablet 06/12/18 Oxycodone HCl/Acetaminophen 1 - 2 each PO Q6H PRN #14 tablet 06/12/18 [Percocet 5-325 mg Tablet] Tamsulosin [Flomax] 0.4 mg PO DAILY #14 capsule 06/12/18 predniSONE [Deltasone] 60 mg PO DAILY 5 Days tablet 06/18/18 Ondansetron Odt [Zofran] 4 mg TL Q6H PRN #14 tablet 08/14/23 Oxycodone HCl/Acetaminophen 1 - 2 tab PO Q4H PRN #20 tab 08/14/23 [Oxycodone-Acetaminophen 5-325] Oxycodone HCl/Acetaminophen 1 each PO Q6H PRN #14 tablet 08/14/23 [Percocet 5-325 mg Tablet] Tamsulosin [Flomax] 0.4 mg PO DAILY #7 cap 08/14/23 oxyCODONE [Roxicodone] 1 - 2 tab PO Q4-6H PRN #25 tablet 08/15/23 polyethylene glycoL 3350(BULK) 17 gm PO DAILY PRN #1 each 08/15/23 [Miralax] - Allergies Allergies/Adverse Reactions: Allergies Allergy/AdvReac Type Severity Reaction Status Date / Time No Known Drug Allergies Allergy Verified 08/16/23 11:40 - Social History Does the pt smoke?: No Smoking Status: Never smoker Does the pt drink ETOH?: No Does the pt have substance abuse?: No - Immunizations Immunizations are current?: No Immunizations: TDAP >10years/unknown - POLST Patient has POLST: No PD ED PE NORMAL - Vitals Vital signs reviewed: Yes - General General: Alert and oriented X 3, Other (Mildly uncomfortable but not as uncomfortable as when I saw him yesterday.) - Abdomen Abdomen: Normal bowel sounds, Soft, Non tender - Back Back: No CVA TTP - Neuro Neuro: Alert and oriented X 3 Results - Vitals Vitals: Vital Signs - 24 hr 08/16/23 11:38 Temperature 36.1 C L Heart Rate 69 Respiratory 18 Rate Blood Pressure 186/95 H O2 Saturation 96 Oxygen O2 Source Room air - Labs Labs: Laboratory Tests 08/16/23 08/16/23 11:55 11:55 WBC 9.4 RBC 5.04 Hgb 15.6 Hct 45.8 MCV 90.9 MCH 31.0 MCHC 34.1 RDW 12.3 Plt Count 134 MPV 10.5 Neut # (Auto) 8.1 H Lymph # (Auto) 0.6 L [place] # (Auto) 0.6 Eos # (Auto) 0.0 Baso # (Auto) 0.0 Absolute Nucleated RBC 0.00 Nucleated RBC % 0.0 Sodium 140 Potassium 4.2 Chloride 105 Carbon Dioxide 28 Anion Gap 7.0 BUN 14 Creatinine 1.7 H Estimated GFR (MDRD) 41 L Glucose 118 H Calcium 9.4 Total Bilirubin 1.1 H AST 16 ALT 10 Alkaline Phosphatase 39 L Total Protein 7.1 Albumin 4.4 Globulin 2.7 Albumin/Globulin Ratio 1.6 PD Medical Decision Making - ED course ED course: 63-year-old gentleman with ongoing pain from renal colic, could not keep down his medications this morning. We were talking it became clear that the [facility] had recommended he only take Zofran once a day which is probably insufficient for the current circumstances. He was medicated with Toradol here, he declined Dilaudid as it made him too loopy and after which she was quite comfortable. He does have a little bit of SHWETA due to the stone, but we are hopeful will pass soon. CBC was unremarkable. He is still having a lot of constipation despite a single dose of MiraLAX. Departure - Departure Disposition: 01 Home, Self Care Clinical Impression: Renal colic on right side Constipation Qualifiers: Constipation type: unspecified constipation type Qualified Code(s): K59.00 - Constipation, unspecified Condition: Good Record reviewed to determine appropriate education?: Yes Instructions: ED Stone Renal W Colic Follow-Up: Adonay العراقي MD [Provider Admit Priv/Credential] - Comments: You can add Dulcolax per package instructions to the MiraLAX for the constipation. Again you can take the MiraLAX up to 4 times a day. You can take the Zofran/ondansetron every 4-6 hours, and recommend taking it about 20 to 30 minutes before your pain medications are due. Forms: PCP List
[2023-08-16] MEDS: SODIUM CHLORIDE 0.9% 1,000 ML IV STA (11:57)
[2023-08-16] MEDS: ONDANSETRON 4 MG/2 ML VIAL IVP STA (11:58)
[2023-08-16 11:59] LABS: BASOPHILS % (AUTO) 0.3 %; EOSINOPHILS % (AUTO) 0.2 %; HCT - HEMATOCRIT 45.8 % (42.0-52.0); HGB - HEMOGLOBIN 15.6 g/dL (14.0-18.0); LYMPHOCYTES # (AUTO) 0.6 10^3/uL (1.5-3.5); MEAN CORPUSCULAR HGB CONC 34.1 g/dL (32.0-36.0); MEAN CORPUSCULAR VOLUME 90.9 fL (80.0-94.0); MONOCYTES # (AUTO) 0.6 10^3/uL (0.0-1.0); MONOCYTES % (AUTO) 6.6 %; NEUTROPHILS # (AUTO) 8.1 10^3/uL (1.5-6.6); NEUTROPHILS % (AUTO) 86.5 %; RED BLOOD COUNT 5.04 10^6/uL (4.70-6.10); RED CELL DISTRIBUTION WIDTH 12.3 % (12.0-15.0); WHITE BLOOD COUNT 9.4 x10^3/uL (4.8-10.8)
[2023-08-16 12:03] LABS: MEAN PLATELET VOLUME 10.5 fL (7.4-11.4); PLT - PLATELET COUNT 134 10^3/uL (130-450)
[2023-08-16] MEDS: KETOROLAC 15 MG/ML VIAL IVP STA (12:07)
[2023-08-16 12:12] LABS: ALBUMIN 4.4 g/dL (3.2-5.5); ALBUMIN/GLOBULIN RATIO 1.6 (1.0-2.2); BILIRUBIN,TOTAL 1.1 mg/dL (0.2-1.0); CALCIUM 9.4 mg/dL (8.5-10.3); CREATININE 1.7 mg/dL (0.6-1.3); POTASSIUM 4.2 mmol/L (3.5-4.5); TOTAL PROTEIN 7.1 g/dL (6.4-8.9)
[2023-08-16] MEDS: HYDROmorphone 1 MG/ML CARPUJECT IVP STA (12:46)
[2023-08-16] MEDS: bisacodyL 5 MG TABLET PO STA (12:48)
[2023-08-16 12:57] VITALS: BP 168/87; O2SAT 98
== END 2023-08-16 12:57 | disposition home or self-care (01) ==
LOC: ED 11:32
DX: N23 Unspecified renal colic (principal); K59.00 Constipation, unspecified; M19.90 Unspecified osteoarthritis, unspecified site; Z87.442 Personal history of urinary calculi; Z79.899 Other long term (current) drug therapy
CPT/HCPCS: 36415; 80053; 85025; 96374; 96375; 99283; 99284; A9270

== ENCOUNTER 2023-08-17 13:33 | Emergency (ER) | payer MEDICARE, OTHER ==
[2023-08-17 13:48] VITALS: BP 172/93; O2SAT 100
[2023-08-17] MEDS ORDERED: KETOROLAC 15 MG/ML VIAL IVP STA (14:01)
[2023-08-17 14:34] LABS: CALCIUM 9.2 mg/dL (8.5-10.3); CREATININE 1.6 mg/dL (0.6-1.3); POTASSIUM 4.2 mmol/L (3.5-4.5)
--- NOTE | 2023-08-17 15:16 | ED Physician Documentation ---
PD HPI ABD PAIN - Stated complaint Stated Complaint: RT SD YOUNG BARRIOS - Chief complaint Chief Complaint: Abd Pain - History obtained from History obtained from: Patient - Additional information Additional information: 63-year-old gentleman presents, fourth visit in as many days for a known right 4 mm mid ureteral stone seen on CT. He has recurrent renal colic. He was pain- free overnight for most of the day today until just about an hour ago when it suddenly came on. He had taken oxycodone 15 minutes prior to that and he is quite nauseous. Pain has not moved much since yesterday. PD PAST MEDICAL HISTORY - Past Medical History Cardiovascular: None Respiratory: None Neuro: None Endocrine/Autoimmune: None GI: None : Kidney stones HEENT: Other Psych: Post traumatic stress disorder Musculoskeletal: Osteoarthritis, Chronic back pain, Other Derm: None - Past Surgical History Past Surgical History: Yes Ortho: Other HEENT: Other - Present Medications Home Medications: Ambulatory Orders Medication Instructions Recorded Confirmed Ibuprofen [Motrin] 800 mg PO Q8H PRN #30 tablet 06/12/18 Ondansetron Odt [Zofran] 4 mg TL Q6H PRN #10 tablet 06/12/18 Oxycodone HCl/Acetaminophen 1 - 2 each PO Q6H PRN #14 tablet 06/12/18 [Percocet 5-325 mg Tablet] Tamsulosin [Flomax] 0.4 mg PO DAILY #14 capsule 06/12/18 predniSONE [Deltasone] 60 mg PO DAILY 5 Days tablet 06/18/18 Ondansetron Odt [Zofran] 4 mg TL Q6H PRN #14 tablet 08/14/23 Oxycodone HCl/Acetaminophen 1 - 2 tab PO Q4H PRN #20 tab 08/14/23 [Oxycodone-Acetaminophen 5-325] Oxycodone HCl/Acetaminophen 1 each PO Q6H PRN #14 tablet 08/14/23 [Percocet 5-325 mg Tablet] Tamsulosin [Flomax] 0.4 mg PO DAILY #7 cap 08/14/23 oxyCODONE [Roxicodone] 1 - 2 tab PO Q4-6H PRN #25 tablet 08/15/23 polyethylene glycoL 3350(BULK) 17 gm PO DAILY PRN #1 each 08/15/23 [Miralax] Metoclopramide [Reglan] 10 mg PO Q6H PRN #20 tablet 08/17/23 oxyCODONE [Roxicodone] 1 - 3 tab PO Q4-6H PRN #30 tablet 08/17/23 - Allergies Allergies/Adverse Reactions: Allergies Allergy/AdvReac Type Severity Reaction Status Date / Time No Known Drug Allergies Allergy Verified 08/17/23 13:48 - Social History Does the pt smoke?: No Smoking Status: Never smoker Does the pt drink ETOH?: No Does the pt have substance abuse?: No - Immunizations Immunizations are current?: No Immunizations: TDAP >10years/unknown - POLST Patient has POLST: No PD ED PE NORMAL - Vitals Vital signs reviewed: Yes - General General: Alert and oriented X 3, Other (He appears uncomfortable and in pain.) - Abdomen Abdomen: Non tender - Back Back: No CVA TTP - Derm Derm: Normal color, Warm and dry - Extremities Extremities: No edema, No calf tenderness / cord - Neuro Neuro: Alert and oriented X 3, Normal speech Results - Vitals Vitals: Vital Signs - 24 hr 08/17/23 13:45 Temperature 36.7 C Heart Rate 66 Respiratory 18 Rate Blood Pressure 172/93 H O2 Saturation 100 Oxygen O2 Source Room air - Labs Labs: Laboratory Tests 08/17/23 14:18 Sodium 137 Potassium 4.2 Chloride 101 Carbon Dioxide 30 Anion Gap 6.0 BUN 17 Creatinine 1.6 H Estimated GFR (MDRD) 44 L Glucose 113 H Calcium 9.2 PD Medical Decision Making - ED course ED course: 63-year-old gentleman with known 4 mm right ureteral stone presents for unco ntrolled pain and and after Toradol he was pain-free. He was offered urologic consultation but again declines. BMP showing improved renal function compared to yesterday. Departure - Departure Disposition: 01 Home, Self Care Clinical Impression: Renal colic on right side Condition: Good Record reviewed to determine appropriate education?: Yes Instructions: ED Stone Renal W Colic Follow-Up: Adonay العراقي MD [Provider Admit Priv/Credential] - Prescriptions: Metoclopramide [Reglan] 10 mg PO Q6H PRN #20 tablet PRN Reason: nausea or headache oxyCODONE [Roxicodone] 1 - 3 tab PO Q4-6H PRN #30 tablet PRN Reason: Kidney stone pain Comments: I sent your prescriptions electronically to [facility] in [place]. You should take 800 mg (4 tablets) of ibuprofen every 6 hours as your base. You can take up to 3 oxycodone every 4 hours on top of that and I am trying a different nausea medicine. Return if worse. I am prescribing a short course of narcotic pain medication for you. These are potentially dangerous and addictive medications that should be used carefully. These medications may constipate you. Take an gpth-vub-zcibuvm stool softener (docusate) twice daily with plenty of water while taking these medications. If you go 24 hours without a bowel movement, take aqlg-ett-gwztghu miralax, per package instructions. Do not drink or drive while taking these medications. If you received narcotic or sedating medications while in the emergency department, do not drive for 24 hours. Store this medication in a safe, secure place and out of reach of children. It is a violation of federal law to give or sell this medication to another person or to use in a manner other than prescribed. The ED will not refill narcotic prescriptions, including prescriptions lost or stolen. To dispose of unwanted medications: 1. [facility] provides a drop box for medication in pill form only (no liquids) 8:00 am to 4:30 p.m. Friday-Friday in the lobby of the [facility], [address] [place] [address]. Empty pills into ziplock bag before disposal. Call [phone] for information. 2.[employer] is a free service available to all [facility] residents. Go to [email or web address] Note that many narcotic pain relievers also contain Tylenol/acetaminophen. Please ensure that your total dose of acetaminophen from all sources does not exceed 3 g (3000 mg) per day. Forms: PCP List
[2023-08-17] MEDS: SODIUM CHLORIDE 0.9% 1,000 ML IV STA (15:17)
[2023-08-17] MEDS: ONDANSETRON 4 MG/2 ML VIAL IVP STA (15:29)
[2023-08-17] MEDS: KETOROLAC 15 MG/ML VIAL IVP STA (15:29)
== END 2023-08-17 16:40 | disposition home or self-care (01) ==
LOC: ED 13:33
DX: N23 Unspecified renal colic (principal); Z87.442 Personal history of urinary calculi
CPT/HCPCS: 36415; 80048; 96374; 99283

== ENCOUNTER 2023-08-22 13:40 | Emergency (ER) | payer MEDICARE, OTHER ==
[2023-08-22] MEDS: KETOROLAC 30 MG/ML VIAL IVP STA (15:20)
[2023-08-22 15:24] LABS: BILIRUBIN,URINE NEGATIVE (NEGATIVE); CLARITY,URINE CLEAR (CLEAR); GLUCOSE, URINE (UA) NEGATIVE (NEGATIVE); KETONES,URINE (UA) NEGATIVE (NEGATIVE); LEUKOCYTE ESTERASE, URINE NEGATIVE (NEGATIVE); NITRITE,URINE NEGATIVE (NEGATIVE); OCCULT BLOOD,URINE NEGATIVE (NEGATIVE); PH,URINE 6.5 PH (5.0-7.5); PROTEIN,URINE NEGATIVE (NEGATIVE); UROBILINOGEN,URINE 1 (NORMAL) E.U./dL (NORMAL)
[2023-08-22 15:29] LABS: ALBUMIN 4.1 g/dL (3.2-5.5); ALBUMIN/GLOBULIN RATIO 1.6 (1.0-2.2); BILIRUBIN,TOTAL 0.6 mg/dL (0.2-1.0); CALCIUM 9.4 mg/dL (8.5-10.3); MAGNESIUM 1.7 mg/dL (1.7-2.3); POTASSIUM 4.5 mmol/L (3.5-4.5); TOTAL PROTEIN 6.7 g/dL (6.4-8.9)
--- NOTE | 2023-08-22 15:55 | CT Report ---
PROCEDURE: KUB INDICATIONS: right flank pain TECHNIQUE: A CT scan of the abdomen and pelvis was performed without the use of intravenous contrast. Images we re recorded and evaluated at appropriate window settings. Reformats: coronal and sagittal. For radiat ion dose reduction, the following was used: automated exposure control, adjustment of mA and/or kV ac cording to patient size. COMPARISON: None. FINDINGS: Image quality: Diagnostic. Kidneys and ureters: 4 mm obstructing stone in the distal right ureter, resulting in moderate hydrone phrosis. Juxtacortical defects of the left kidney. No contour deforming mass. Bladder: Bladder wall thickness is normal, accounting for underdistention. No calcified bladder stone s. OTHER: Lower chest: Cardiomegaly. Liver: No contour-deforming mass. Hepatic cyst in the central right hepatic lobe. Gallbladder and biliary tree: No radiopaque stones or wall thickening. No biliary dilation. Spleen: No splenomegaly. Pancreas: No pancreatic ductal dilation. Adrenals: No adrenal nodule. Stomach, bowel and peritoneum: No bowel distension. No pathologic free fluid. Lymph nodes: No central or retroperitoneal adenopathy. Vessels: No infrarenal aortic aneurysm. Reproductive organs: Prostatomegaly. Pelvic lymph nodes: No adenopathy by size criteria. Bones: No aggressive osseous abnormality. Other: Small umbilical hernia containing fat. IMPRESSION: Obstructing 4 mm stone in the distal right ureter, resulting in moderate hydronephrosis. Reviewed by: Clyde Meléndez MD on 08/22/2023 3:54 PM PST Approved by: Clyde Meléndez MD on 08/22/2023 3:54 PM PST Station ID: [id number]
--- NOTE | 2023-08-22 17:06 | ED Physician Documentation ---
History of Present Illness - Stated complaint Stated Complaint: LOW BACK PX - Chief complaint Chief Complaint: Back Pain - Additonal information Additional information: 63-year-old male presents emergency department for recurrent lower back pain that he says feels the exact same as he has been feeling with his kidney stones. Patient said that he has recently ran out of his prescription for pain medications and so he said that he is coming back into the emergency department for refill and wanted to see if his kidney stone has moved at all. He does not have an appointment with urology until September 03 and says that he does not feel like he is able to last that long. PD PAST MEDICAL HISTORY - Past Medical History Past Medical History: Yes Cardiovascular: None Respiratory: None Neuro: None Endocrine/Autoimmune: None GI: None : Kidney stones HEENT: Other Psych: Post traumatic stress disorder Musculoskeletal: Osteoarthritis, Chronic back pain, Other Derm: None - Past Surgical History Past Surgical History: Yes Ortho: Other HEENT: Other - Present Medications Home Medications: Ambulatory Orders Medication Instructions Recorded Confirmed Ibuprofen [Motrin] 800 mg PO Q8H PRN #30 tablet 06/12/18 Ondansetron Odt [Zofran] 4 mg TL Q6H PRN #10 tablet 06/12/18 Oxycodone HCl/Acetaminophen 1 - 2 each PO Q6H PRN #14 tablet 06/12/18 [Percocet 5-325 mg Tablet] Tamsulosin [Flomax] 0.4 mg PO DAILY #14 capsule 06/12/18 predniSONE [Deltasone] 60 mg PO DAILY 5 Days tablet 06/18/18 Ondansetron Odt [Zofran] 4 mg TL Q6H PRN #14 tablet 08/14/23 Oxycodone HCl/Acetaminophen 1 - 2 tab PO Q4H PRN #20 tab 08/14/23 [Oxycodone-Acetaminophen 5-325] Oxycodone HCl/Acetaminophen 1 each PO Q6H PRN #14 tablet 08/14/23 [Percocet 5-325 mg Tablet] Tamsulosin [Flomax] 0.4 mg PO DAILY #7 cap 08/14/23 oxyCODONE [Roxicodone] 1 - 2 tab PO Q4-6H PRN #25 tablet 08/15/23 polyethylene glycoL 3350(BULK) 17 gm PO DAILY PRN #1 each 08/15/23 [Miralax] Metoclopramide [Reglan] 10 mg PO Q6H PRN #20 tablet 08/17/23 oxyCODONE [Roxicodone] 1 - 3 tab PO Q4-6H PRN #30 tablet 08/17/23 Oxycodone HCl/Acetaminophen 1 each PO Q6HR PRN #3 tablet 08/22/23 [Percocet 5-325 mg Tablet] Tamsulosin HCl [Flomax] 0.4 mg PO DAILY #20 cap 08/22/23 - Allergies Allergies/Adverse Reactions: Allergies Allergy/AdvReac Type Severity Reaction Status Date / Time No Known Drug Allergies Allergy Verified 08/22/23 13:50 - Social History Does the pt smoke?: No Smoking Status: Never smoker Does the pt drink ETOH?: No Does the pt have substance abuse?: No - Immunizations Immunizations are current?: No Immunizations: TDAP >10years/unknown - POLST Patient has POLST: No PD ED PE NORMAL - Vitals Vital signs reviewed: Yes - General General: Alert and oriented X 3, No acute distress, Well developed/nourished - Cardiac Cardiac: RRR, No gallop, Strong equal pulses - Respiratory Respiratory: No respiratory distress, Clear bilaterally - Back Back: Other (Right CVA tenderness) - Derm Derm: Normal color, Warm and dry, No rash Results - Vitals Vitals: Vital Signs - 24 hr 08/22/23 08/22/23 13:47 17:10 Temperature 36.7 C Heart Rate 67 63 Respiratory 16 18 Rate Blood Pressure 167/101 H 137/84 H O2 Saturation 97 96 Oxygen O2 Source Room air - Labs Labs: Laboratory Tests 08/22/23 08/22/23 15:05 15:19 Sodium 138 Potassium 4.5 Chloride 103 Carbon Dioxide 29 Anion Gap 6.0 BUN 20 Creatinine 1.0 Estimated GFR (MDRD) 76 L Glucose 120 H Calcium 9.4 Magnesium 1.7 Total Bilirubin 0.6 AST 19 ALT 20 Alkaline Phosphatase 34 L Total Protein 6.7 Albumin 4.1 Globulin 2.6 Albumin/Globulin Ratio 1.6 Lipase 19 Urine Color YELLOW Urine Clarity CLEAR Urine pH 6.5 Ur Specific Mcdonough 1.015 Urine Protein NEGATIVE Urine Glucose (UA) NEGATIVE Urine Ketones NEGATIVE Urine Occult Blood NEGATIVE Urine Nitrite NEGATIVE Urine Bilirubin NEGATIVE Urine Urobilinogen 1 (NORMAL) Ur Leukocyte Esterase NEGATIVE Ur Microscopic Review NOT INDICATED Urine Culture Comments NOT INDICATED - Rads (name of study) CT KUB Relevant Findings:: Final report received, EMP independent interpretation of test, Other (4 mm renal calculi to the right distal ureter with mild hydronephrosis) PD Medical Decision Making - ED course ED course: 63-year-old male presents emergency department for right lower back pain. CT KUB was complete which does reveal that the 4 mm kidney stone is indeed moving down is down to the distal ureter last ER visit it was in the mid ureter. Patient was informed that the kidney stone is almost to his bladder. This has been patient's fourth time coming into the emergency department for this and asking for medication refill. Patient was informed that due to policies we are not able to continue to give him refills after this I can give him a one-time dose of 3 pills he was offered Toradol here in the emergency department and declined he said he only wanted oxycodone. He also says at this point in time he is no longer having any pain so he was okay to hold off for now but said that he has been taking the pain medications vmvwmu-yxi-dhuux to subside the pain and knows that we will come back if he does not have any pain medication at home . I told him I was only willing to give him a total of 3 pills and other than that he needed to follow-up with his primary care provider and that he cannot continue to come to the emergency department for medication refills especially narcotics. Departure - Departure Disposition: 01 Home, Self Care Clinical Impression: Kidney stone on right side Instructions: Kidney Stones Prescriptions: Oxycodone HCl/Acetaminophen [Percocet 5-325 mg Tablet] 1 each PO Q6HR PRN #3 tablet PRN Reason: Pain >8 Tamsulosin HCl [Flomax] 0.4 mg PO DAILY #20 cap Comments: Thank you for trusting us with your care I have sent a refill of your Flomax to your preferred pharmacy. Your kidney stone appears to be moving and is almost to your bladder. Please follow-up with urology see if they are able to get you in sooner. Please come back to the emergency department return develop any fevers or chills nausea vomiting. I informed the patient as well as the caregiver that she I am prescribing a short course of narcotic pain medication for you. These are potentially dangerous and addictive medications that should be used carefully. These medications may constipate you. Take an lqte-nvd-ugxszyw stool softener (docusate) twice daily with plenty of water while taking these medications. If you go 24 hours without a bowel movement, take soea-mdb-uvmxyds miralax, per package instructions. Do not drink or drive while taking these medications. If you received narcotic or sedating medications while in the emergency department, do not drive for 24 hours. Store this medication in a safe, secure place and out of reach of children. It is a violation of federal law to give or sell this medication to another person or to use in a manner other than prescribed. The ED will not refill narcotic prescriptions, including prescriptions lost or s tolen. To dispose of unwanted medications: 1. [facility] at [address] in [place] has a medication drop box. They accept prescription medications (in pi ll form) Friday through Friday 9:00 a.m. to 5:00 p.m. 2. [facility] accepts prescription medications (in pill form only) for disposal year round. Call for more information. 3. Contact the [facility] for the next [facility] sponsored prescription drug collection event. , x5094, or x6080; Note that many narcotic pain relievers also contain Tylenol/acetaminophen. Please ensure that your total dose of acetaminophen from all sources does not exceed 3 g (3000 mg) per day. Discharge Date/Time: 08/22/23 17:28
[2023-08-22 17:18] VITALS: BP 137/84; O2SAT 96
== END 2023-08-22 17:28 | disposition home or self-care (01) ==
LOC: ED 13:40
DX: N13.2 Hydronephrosis with renal and ureteral calculous obstruction (principal)
CPT/HCPCS: 36415; 80053; 81001; 81003; 83690; 83735; 87086; 99284

== ENCOUNTER 2024-03-16 10:50 | Outpatient (CLI) | payer MEDICARE, OTHER ==
--- NOTE | 2024-03-16 11:04 | CARDIAC PROCEDURE NOTE ---
Stress Test Report Service Date: 03/16/24 Service Time: 11:00 Ordering Provider: Pawan Barrett MD Indication for Test: Risk stratification in setting of recent IL. 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 He still pushes himself hard on bike rides and reports that about 2 months ago while on such a ride in [place], he experienced unexpected marked dyspnea that prompted him to stop briefly with symptom resolution, then he resumed cycling, experiencing the same dyspnea nearly immediately. He then began experiencing vague chest discomfort and called his for a ride; along the way he was experiencing progressive chest discomfort, so they diverted to an ED and [facility] was [facility] an LAD stent was placed, with (per his recollection) no other stenoses observed. I do not have records from that hospitalization, but he tells me that an echocardiogram done the next morning was essentially normal and he was discharged after 24 hours on a regimen of aspirin, Brilinta, rosuvastatin, ezetimibe and metoprolol. He had severe bruising with Brilinta and was changed to Plavix. Metoprolol was discontinued due to his experiencing significant dizziness, which then mostly resolved. He saw Dr. Barrett in clinic a few weeks ago, who approved of his increasing his activities back to baseline, so he is again cycling intensely, averaging 20 miles a day with a route that includes hills, and he has had no recurrence of the shortness of breath or chest discomfort that he had at the time of his event. Cardiac Risk Factors: Positive for KNOWN CORONARY DISEASE; negative for history of hypertension, diabetes, significant hyperlipidemia or tobacco smoking ever. Type of Stress Test: ETT with Echocardiography Procedure: -Exercise Treadmill Test- After signing informed consent, the patient underwent echo imaging at rest and then performed treadmill exercise using a Surjit protocol. The patient exercised for 12 minutes 56 seconds and achieved a peak heart rate of 150 (94 percent predicted maximum heart rate for age), and an estimated workload of 14.1 METS. The test was terminated due to achieving target heart rate, with some fatigue/shortness of breath. Resting heart rate: 67 Peak heart rate: 150 Normal response to exercise. Resting BP: 129/96 Peak BP: 164/80 Elevated resting diastolic BP, with normal response of systolic and diastolic BPs to exercise. Room air oxygen saturation during exercise ranged between 93-97%. Rhythm during exercise: Sinus rhythm throughout, with very rare isolated PVCs. Symptoms: He denied experiencing severe dyspnea or any chest discomfort whatsoever. EKG at rest showed normal sinus rhythm with reduction of R wave magnitude in leads V1- V3, consistent with prior age-indeterminate anteroseptal infarction, otherwise remarkable for resting elevation of ST segments in some leads likely due to normal variant early repolarization. EKG at peak stress showed no ischemia by EKG criteria. In Recovery HR and BP normally rapidly decreased towards resting levels (HR 72, BP 143/81 at 5:00). Echo imaging, performed at rest and with stress, will be reported separately. I, Russell Rapp MD, was present throughout this treadmill stress study and supervised it in its entirety. Summary: 1) Exercise tolerance was well above average for age and sex as evidenced by GITA of -46%. 2) Abnormal resting EKG. 3) Adequate level of exercise was achieved on this treadmill stress test. 4) Normal BP response to exercise. 5) No ischemic changes by EKG criteria were seen at peak stress. 6) Echo image interpretation reveals normal left ventricular size, wall thickness and systolic function, with appropriate hyperdynamic augmentation of all segments with exercise, indicating no evidence of prior infarct or inducible ischemia. No significant valvular abnormality or elevation of estimated pulmonary artery systolic pressure seen on screening study. See separate REVISED report (interpreted 03/18/24) for more details. Conclusions and Recommendations: 1) Overall these are highly reassuring treadmill stress echocardiogram results, revealing no symptom, EKG nor echocardiographic evidence of inducible ischemia. Notably, anterior wall motion on both resting and stress echocardiogram images appeared normal, even though there were subtle EKG signs of prior infarct. 2) I advised him to remain on his current therapies and follow-up with Dr. Barrett, who will present these findings along with his entire picture to the [facility].
== END 2024-03-16 10:51 | disposition home or self-care (01) ==
LOC: DI 10:50
PROVIDERS: ATTEND Internal Medicine Cardiovascular Disease
DX: I25.10 Atherosclerotic heart disease of native coronary artery without angina pectoris (principal); I25.2 Old myocardial infarction
CPT/HCPCS: 36415; 80061; 83721; 93350

== ENCOUNTER 2024-03-16 12:04 | Outpatient (CLI) | payer MEDICARE, OTHER ==
[2024-03-16 12:26] LABS: CHOL/HDL RATIO 2.2 (<5.0); CHOLESTEROL 107 mg/dL; HDL CHOLESTEROL 49 mg/dL; LDL CHOLESTEROL,CALCULATED 36 mg/dL; LDL/HDL RATIO 0.7 (<3.6); TRIGLYCERIDES 111 mg/dL; VLDL CHOLESTEROL 22 mg/dL
== END 2024-03-16 12:05 | disposition home or self-care (01) ==
LOC: LAB 12:04
PROVIDERS: ATTEND Internal Medicine Cardiovascular Disease
DX: I25.10 Atherosclerotic heart disease of native coronary artery without angina pectoris (principal); I25.2 Old myocardial infarction
CPT/HCPCS: 36415; 80061; 83721